=== PATIENT | female | born 1945 ===

== ENCOUNTER 2023-07-01 12:35 | Emergency (ER) | payer OTHER, MEDICARE | END 2023-07-01 14:31 | disposition home or self-care (01) | LOC: MADERS 12:35 | DX: M25.561 Pain in right knee (principal); M25.461 Effusion, right knee; I10 Essential (primary) hypertension; E03.9 Hypothyroidism, unspecified; W01.0XXA Fall on same level from slipping, tripping and stumbling without subsequent striking against object, initial encounter; Y93.89 Activity, other specified; Z79.899 Other long term (current) drug therapy ==